=== PATIENT | male | born 1990 | race Caucasian/White ===

== ENCOUNTER 2019-09-07 23:05 | Emergency (ER) | payer OTHER ==
[~2019-09-07] VITALS: Ht 165.1 cm; Wt 76.3 kg
[2019-09-08 03:06] VITALS: BP 128/83
== END 2019-09-08 03:07 | disposition home or self-care (01) ==
LOC: ER 23:06
DX: R42 Dizziness and giddiness (principal); M54.2 Cervicalgia; R55 Syncope and collapse; R11.0 Nausea; Z72.89 Other problems related to lifestyle; Z60.2 Problems related to living alone
CPT/HCPCS: 93005; 99283